=== PATIENT | female | born 1945 | race Caucasian/White ===

== ENCOUNTER 2023-03-25 02:23 | Outpatient (CLI) | payer MEDICARE, BC, SELFPAY ==
[2023-03-25] MEDS: Gadoterate meglumine 20 ML VIAL 12 ML IVP (10:21)
--- NOTE | 2023-03-25 11:00 | DI.MRI_ITS ---
Exam(s) MR IAC BRAIN WO/W EXAM: MR IAC BRAIN WO/W CLINICAL HISTORY: asymmetric hearing, imbalance, Family h/o acoustic neuroma Acoustic Neuro. TECHNIQUE: Multiplanar multisequence MRI of the brain and internal auditory canals was performed. CONTRAST MATERIAL: IV Contrast: 12 mL of Dotarem contrast administered. COMPARISON: No exams were available for comparison FINDINGS: VENTRICLES AND EXTRA AXIAL SPACES: Normal in size and morphology for the patient's age. Incidental no te is made of a cavum septum pellucidum. HEMORRHAGE: None. CEREBRAL PARENCHYMA: No focus of restricted diffusion to suggest acute infarct. No space-occupying le tomás identified. There are multiple areas of hyperintense signal in the white matter on the FLAIR and T2 weighted images most consistent with small vessel ischemic disease. MIDLINE SHIFT: None. BRAINSTEM/CEREBELLUM: Normal. CALVARIUM: Normal. ENHANCEMENT: No suspicious enhancement identified. VISUALIZED PARANASAL SINUSES/MASTOIDS: There are small mucous retention cysts or polyps in the right maxillary sinus. [place]: Normal flow void. PITUITARY GLAND: Unremarkable. IAC/CP ANGLE: The internal auditory canals are within normal limits. The cerebellar pontine angles ar e unremarkable. No enhancing lesions are seen. Visualized portion of the facial nerves appear within normal limits. OTHER FINDINGS: None. IMPRESSION: 1. No intracranial mass or enhancing lesion. Specifically no mass or enhancing lesion is seen in the IAC or cerebellopontine angle. 2. Findings of age-related cerebral atrophy and small vessel ischemic disease. 3. No evidence of an acute infarct. DATA REPOSITORY:
== END 2023-03-25 02:43 ==
PROVIDERS: PCP Nurse Practitioner; Visit Provider Otolaryngology
DX: H90.3 Sensorineural hearing loss, bilateral (principal); R26.89 Other abnormalities of gait and mobility; I67.82 Cerebral ischemia
CPT/HCPCS: 70553

== ENCOUNTER → 2023-09-03 08:18 | Outpatient (BNVA) | payer MEDICARE, BC, SELFPAY | PROVIDERS: Referring Provider Nurse Practitioner; Visit Provider Student in an Organized Health Care Education/Training Program | DX: M17.11 Unilateral primary osteoarthritis, right knee (principal) | CPT/HCPCS: 99203 ==

== ENCOUNTER → 2024-04-10 13:43 | Outpatient (BNVA) | payer MEDICARE, BC, SELFPAY | PROVIDERS: PCP Family Medicine; Referring Provider Family Medicine; Visit Provider Student in an Organized Health Care Education/Training Program | DX: M17.11 Unilateral primary osteoarthritis, right knee (principal) | CPT/HCPCS: 99213 ==

== ENCOUNTER → 2024-04-17 14:24 | Outpatient (BNVA) | payer MEDICARE, BC, SELFPAY | PROVIDERS: PCP Family Medicine; Referring Provider Family Medicine; Visit Provider Student in an Organized Health Care Education/Training Program | DX: M17.11 Unilateral primary osteoarthritis, right knee (principal) | CPT/HCPCS: 20610; J1010 ==

== ENCOUNTER → 2025-01-19 07:58 | Outpatient (BNVA) | payer MEDICARE, BC, SELFPAY | PROVIDERS: PCP Family Medicine; Referring Provider Family Medicine; Visit Provider Physician Assistant | DX: M17.11 Unilateral primary osteoarthritis, right knee (principal) | CPT/HCPCS: 20610; J1010 ==

== ENCOUNTER → 2025-07-16 09:45 | Outpatient (BNVA) | payer MEDICARE, BC, SELFPAY | PROVIDERS: PCP Family Medicine; Referring Provider Family Medicine; Visit Provider Student in an Organized Health Care Education/Training Program | DX: M17.11 Unilateral primary osteoarthritis, right knee (principal) | CPT/HCPCS: 99214 ==

== ENCOUNTER 2025-09-17 14:37 | Outpatient (CLI) | payer MEDICARE, BC, SELFPAY ==
--- NOTE | 2025-09-17 13:45 | DI.RAD_ITS ---
Exam(s) XR STANDING ALIGNMENT XR KNEE RT 1V EXAM: XR STANDING ALIGNMENT and XR knee RT 1 V CLINICAL HISTORY: OA R KNEE. TECHNIQUE: 2D digital imaging was performed. Five images were obtained. COMPARISON: CR Knee Right 3 Views from 01/15/2022 FINDINGS: BONES: The hips are well maintained. In the left knee, there are mild degenerative changes characterized by osteophytes and mild narrowing of the medial femoral tibial joint space. In the right knee, tricompartment degenerative changes are present characterized by joint space narrowing and osteophytes. The findings are most marked at the patellofemoral joint where there is near complete loss of the joint space. There is moderately severe narrowing of the medial femoral tibial joint. There is chondrocalcinosis seen in the lateral femoral tibial joint. There is an osteochondral defect seen in the medial femoral condyle. There is a lucency seen in the medial talar domes bilaterally.There is no significant leg length discrepancy. SOFT TISSUE: Normal. IMPRESSION: 1. Osteoarthritis of the knees, right greater than left. 2. Osteochondral lesion of the right medial femoral condyle. 3. Osteochondral lesion of the talar domes bilaterally. DATA REPOSITORY: RADIATION DOSE DELIVERED:
== END 2025-09-17 14:38 | disposition home or self-care (01) ==
LOC: DIORS 14:38
PROVIDERS: PCP Family Medicine; Referring Provider Family Medicine; Visit Provider Physician Assistant
DX: Z01.818 Encounter for other preprocedural examination (principal); M17.11 Unilateral primary osteoarthritis, right knee
CPT/HCPCS: 99024; 73560; 77073

== ENCOUNTER 2025-09-19 05:59 | Day surgery (SDC) | payer MEDICARE, BC, SELFPAY ==
--- NOTE | 2025-09-18 17:15 | ANES.PREOP_ITS ---
General Info Date of Service Date Performed: 09/19/25 Height: 5 ft 6 in Weight: 60.781 kg Body Mass Index (BMI): 21.6 Surgical Procedure: Operation Date: 09/19/25 07:40 Proposed Procedure Side Surgeon p Knee Total Arthroplasty Right Damon Woodward MD Meds Allergies and Home Medications Allergies Allergy/AdvReac Type Severity Reaction Status Date / Time No Known Allergies Allergy Verified 09/19/25 06:12 Home Medication ?Medication ?Instructions ?Recorded alendronate 70 mg tablet 70 mg PO QWEEK 09/03/23 rizatriptan 10 mg tablet (Maxalt) See Rx Instructions PO .COMPLEX 09/03/23 dorzolamide 2 % eye drops 1 drp ophthalmic (eye) TID 0 07/16/25 netarsudil 0.02 % eye drops 1 drp ophthalmic (eye) QPM 07/16/25 (Rhopressa) lisinopril 10 mg tablet 10 mg PO DAILY 09/05/25 brimonidine 0.2 %-timolol 0.5 % 1 drp ophthalmic (eye) BID 09/17/25 eye drops (Combigan) Current Visit Medications: Current Medications Generic Name Dose Route Start Last Admin Trade Name Freq PRN Reason Stop Dose Admin Acetaminophen 1,000 mg 09/19/25 06:00 Acetaminophen 500 Mg Tab PO 09/19/25 23:59 PREOP ED Celecoxib 400 mg 09/19/25 06:00 Celecoxib 200 Mg Cap PO 09/19/25 23:59 PREOP ED Gabapentin 300 mg 09/19/25 06:00 Gabapentin 300 Mg Cap PO 09/19/25 23:59 PREOP ED Ringer's Solution 1,000 mls @ 80 mls/hr 09/19/25 06:00 IV 09/19/25 23:59 INFUSION ED Cefazolin Sodium/Dextrose 2 gm in 50 mls @ 100 mls/hr 09/19/25 06:00 Ancef Duplex IVPB 09/19/25 23:59 PREOP DE Tranexamic Acid/Sodium Chloride 1,000 mg in 100 mls @ 600 mls/hr 09/19/25 06:00 IVPB 09/19/25 23:59 PREOP ED Sodium Chloride 0 ml 09/19/25 06:00 Normal Saline Flush 10 Ml Syr IV 09/19/25 23:59 PRN PRN Sodium Chloride 0 ml 09/19/25 06:00 Normal Saline 10 Ml Vial IJ 09/19/25 23:59 DIRECTED PRN Sterile Water 0 ml 09/19/25 06:00 Water,Injection,Sterile 10 Ml Vial IJ 09/19/25 23:59 DIRECTED PRN PFSH Active Problems Active Problems: Problem Status Onset Code Impairment of speech discrimination Acute H93.299 Arthritis of right knee Acute M17.11 Conductive hearing loss, external ear Acute H90.2 Impacted cerumen, bilateral Acute H61.23 Degenerative joint disease of right knee Chronic M17.11 Imbalance Acute R26.89 Asymmetrical sensorineural hearing loss Acute H90.3 Sensorineural hearing loss Acute H90.5 Wears hearing aid in both ears Acute Z97.4 Sensorineural hearing loss (SNHL) of both ears Acute H90.3 Otalgia, right ear Acute H92.01 Hypercholesterolemia Acute E78.00 Hypertension Chronic I10 Chronic diarrhea Acute K52.9 Patellofemoral arthritis of right knee Acute M17.11 Plantar fasciitis Acute M72.2 Medical History Medical History Lumbago with sciatica Basal cell carcinoma (BCC) of back Cataract Surgical History Surgical History H/O: hysterectomy History of renal stent H/O hernia repair S/P bunionectomy Tobacco Smoking/Tobacco Use Status: Never Passive smoking exposure: No Alcohol Alcohol Intake: current Alcohol intake frequency: a few times a month Substance Use Substance use: Never Substance use type: does not use Vital Signs and Lab Results Vital Signs Most Recent Vital Signs in EMR: Temp Pulse Resp BP Pulse Ox 36.1 C L 74 18 158/97 H 98 09/19/25 06:09 09/19/25 06:09 09/19/25 06:09 09/19/25 06:09 09/19/25 06:09 Anesthesia Assessment and Plan Anesthesia History Personal History: No History of Anesthesia Complications Family History: No Family History of Anesthesia Complications Exercise Tolerance Exercise Tolerance: Metabolic Equivalents>4 Cardiac & Pulmonary Exam Cardiac Exam: Normal S1/S2 Heart Sounds Pulmonary Exam: Clear Bilateral Breath Sounds Implantable Cardiac Device Does patient have a Pacemaker or an ICD?: No Airway Exam Known Difficult Airway: No Mallampati Class: 4 Mouth Opening: Normal (> 3cm) Thyromental Distance: Greater than 3 cm Neck Range of Motion: Limited ROM Neck Circumference: Normal Teeth Condition: Normal Dentition ASA Classification ASA Score: ASA 2 Emergency Case?: No NPO Status NPO Status: NPO Clears >2 hours, Solids >8 hours Anesthesia Plan Resuscitation Status: Full Code Anesthesia Technique: Spinal Anesthesia Airway Planned: Natural Airway Pain Management: Surgeon and patient request nerve block Monitors Used: Standard Monitors Preoperative Comments:: 80 yo with NKA for TKA. Sig PMHx: HTN (lisinopril. 158/85 at PCP), LBP/sciatica (had a kyphoplasty L1. Spine imaging on her phone reviewed), migraine (rizatriptan). Never smoker, occ EtOH. ECG/LABS (at PCP): WNL.
[2025-09-19] VITALS (20 sets, daily range): BP systolic 131–173; BP diastolic 60–120; PULSE 55–74; RESP 13–29; TEMP 36.1–36.6; O2SAT 92–98; BMI 21.6
[2025-09-19] MEDS: Celecoxib 200 MG CAP 400 MG PO (06:14)
[2025-09-19] MEDS: Acetaminophen 500 MG TAB 1000 MG PO (06:14)
[2025-09-19] MEDS: Gabapentin 300 MG CAP PO (06:15)
[2025-09-19] MEDS: Lactated Ringers 1,000 ML 80 ML IV (07:00)
--- NOTE | 2025-09-19 07:15 | W.PM.DSUDISC ---
Date of service: 09/19/25 Discharge Plan Disposition Patient Disposition: Home Condition: Good Discharge Details Reason For Visit: R TKR Attending Provider: Damon Woodward Primary Care Provider: Vicente Valle [place] Meds and New Rx's Prescriptions: New celecoxib 200 mg capsule 200 mg PO BID Qty: 60 0RF aspirin 81 mg tablet,delayed release (DR/EC) 81 mg PO BID Qty: 60 0RF acetaminophen 500 mg tablet 1,000 mg PO TID Qty: 90 3RF pantoprazole 40 mg tablet,delayed release (DR/EC) 40 mg PO DAILY Qty: 14 0RF dexamethasone 4 mg tablet 4 mg PO DAILY Qty: 2 0RF docusate sodium 100 mg capsule 100 mg PO BID PRNQty: 28 0RF gabapentin 300 mg capsule 300 mg PO QHS Qty: 14 0RF oxycodone 5 mg tablet 5 mg PO Q4H PRNQty: 18 0RF Continued alendronate 70 mg tablet 70 mg PO QWEEK rizatriptan [Maxalt] 10 mg tablet See Rx Instructions PO .COMPLEX Rx Instructions: take 1 tab at onset of headache; if no relief may repeat 1 tab after at least 2 hrs; max = 3 tabs/24 hr PO dorzolamide 2 % drops 1 drp ophthalmic (eye) TID Rhopressa 0.02 % drops 1 drp ophthalmic (eye) QPM lisinopril 10 mg tablet 10 mg PO DAILY brimonidine-timolol [Combigan] 0.2-0.5 % drops 1 drp ophthalmic (eye) BID Patient Comments: INSTILL 1 DROP INTO BOTH EYES TWICE DAILY Discharge Instructions Additional Instructions: Total Knee Discharge Instructions Activity: The most important activity is to walk and to work on gentle motion (both flexion and extension). You should try to take short walks a few times a day. It is important that when resting you work on keeping the knee straight. Avoid putting a pillow behind the knee as this will encourage flexion. Work on range of motion exercises as provided by Physical Therapy. - Start outpatient physical therapy within 2 weeks. - You should wear the LEROY hose on both legs for 2 weeks. You may remove these at night. You may also use any compression sock in place of the LEROY hose. - Utilize [employer] to review exercises, see videos on exercises and obtain basic information pertaining to your surgery and your recovery. Dressing: Remove the Darryl wrap by 2 days after your surgery and put on the LEROY stocking given to you from the hospital. Keep the surgical dressing (underneath the DARRYL wrap) in place for at least one week. After the first week it may be removed and replaced with light gauze and tape or nothing. The wound and dressing may get wet after 3 days but avoid soaking the dressing or otherwise it will need to be changed. Many people prefer covering the dressing with cling wrap (saran wrap) to minimize it from getting soaked. If it gets wet, just pat dry. If it starts to peel off then it will need to be changed. Medications: - You should take Tylenol and anti-inflammatory Celebrex as your primary pain control medications. If the Celebrex is too expensive or not covered, please call the office for another alternative (Advil/Ibuprofen or Naproxen/Aleve) - You have been prescribed a stronger pain medication Oxycodone for breakthrough pain, take as needed as prescribed. - You have also been prescribed a stomach acid reduction agent Pantoprozole to help reduce stomach acid and reflux. - You have been prescribed Gabapentin to take at night for restlessness and nerve pain. - You will be taking Aspirin 81mg twice a day for DVT prevention unless instructed otherwise. - You have also been prescribed Decadron to take to control post-operative nausea and pain. You will start this tomorrow. - If you have constipation you should take Colace or Miralax (both [id number]). It takes most people 3-4 days to have a bowel movement. Follow-up: 2 weeks If you have any acute concerns or questions, please do not hesitate to contact the office at [phone]. You may contact Dr. Woodward with any questions after hours through the hospital at [phone] or on his cell phone at [phone]. Stand Alone Forms: Anesthesia Discharge Inst., Ana.Nerve Block Instructions, Tonny Malik (DSU), Portal Information Referrals: Damon Woodward MD [ [facility] STAFF PHYSICIAN, Orthopaedic Surgical] - 10/05/25 10:30 am Equipment/Supplies: Walker Activity:: Activity as Tolerated Shower/Bathe:: 72 hours Diet:: As Tolerated Discharge Orders Discharge Orders: Discharge Order (Routine); Ordered 09/19/25 Ordered By: Librado Romo DS: Diagnosis Discharge Diagnosis (1) Degenerative joint disease of right knee: Status: Chronic
--- NOTE | 2025-09-19 07:30 | W.ANESNERVE ---
Nerve Block Single Injection Procedure Date and Time Date Performed: 09/19/25 Procedure Start: 07:18 Location Where Procedure Performed Procedure Location: Day Surgery Unit Reason Performed: Postoperative Analgesia Requesting Provider: Damon Woodward Timeout Performed Timeout Performed: Yes Monitoring Used ECG, Blood Pressure and SpO2 Sterility Sterility: Hand Hygiene, Surgical Cap, Surgical Mask, Sterile Gloves and Chlorhexidine Sedation Given During Procedure Sedation Given (Indicate Dose Given): Propofol IV Dose:: 15 mg Patient Mental Status Patient Mental Status: Sedate with meaningful communication Nerve Block 1st Nerve Block: Laterality: Right Block Type: Adductor Canal Ultrasound Image Saved?: Yes Needle / Catheter Used: 100mm SonoPlex II Local Anesthetic Bolus (Indicate Dose Given): Lidocaine used for local infiltration of skin and Bupivacaine 0.25% Dose:: 8 mL Additives (Indicate Dose Given): None Ultrasound: Not Used Nerve Stimulator: Primary Nerve Stimulator Technique and No twitch or parasthesia noted < 0.5 mA Paresthesia: None Procedure Tolerated: No Complications Procedure Outcome: Successful Performed By: Kings Ortiz
--- NOTE | 2025-09-19 07:37 | ROE_ITS ---
Operative Note Operative Note PRE-OP DIAGNOSIS: Right Knee Osteoarthritis POST-OP DIAGNOSIS: same PROCEDURE: Right Total Knee Replacement SURGEON: Damon Woodward WHIRLEY OPERATOR: Chepe Romo ANESTHESIA TYPE: General LMA/ETT Refer to Anesthesia Record ESTIMATED BLOOD LOSS: 150 PATHOLOGY: none sent TOURNIQUET TIME: 0 COMPLICATIONS: None Patient was transported to: PACU Patient's condition: stable Implants: 1. Depuy Attune Cementless Cruciate Retaining Femoral Component, Size 6 2. Depuy Attune Cementless Fixed Bearing Tibial Component, Size 5 3. Depuy Attune 6x6mm CR/FB Poly 4. Depuy Attune Patellar Component, Size 35mm Indications: I have seen Suzanne in clinic for symptoms of knee arthritis with notable deformity, confirmed with radiographic findings. She has exhausted nonoperative methods and was having significant limitations in daily function and desired better function and less pain. I discussed the technical details of a knee replacement. I explained the risks of the procedure to include, but not limited to, bleeding, infection, pain, stiffness, fracture, damage to nerves and vessels, damage to muscles and tendons, loosening, need for repeat procedure, blood clot and cardiopulmonary demise. Despite these risks, Suzanne elected to proceed. Findings: There was significant signs of arthritis throughout the knee with deformity of the patella, trochlea and medial femur. Procedure Description: Suzanne was greeted in the preoperative holding area where the correct side was identified and marked. The consent was reviewed with the patient and signed. The history and physical was updated. All questions were answered. Preoperative medications were administered: Acetaminophen 1000mg, Celebrex 400mg, and Gabapentin 300mg. An adductor canal block was then administered by the anesthesia team in the DSU. Suzanne was taken back to the operating room. A spinal anesthestic was then administered although she continued to have leg motion and therefore was converted to general anesthetic.. The patient was placed into the supine position on the operating room table. Posts were placed for positioning during the procedure. All bony prominences were well padded. Prophylactic antibiotics in the form of Cefazolin were administered. 1g of Tranxemic Acid was given intravenously within 30 minutes of incision. The right leg was then prepped with Chloraprep and draped in a standard fashion with impervious stockinette. A second prep with Chloraprep was performed prior to application of Iodine impregnated skin protection. A timeout to confirm correct identity, side and site, procedure, allergies, anesthesia, and medical concerns was performed. With the knee in some flexion, a midline incision was made overlying the knee. Full thickness skin flaps were raised once the extensor mechanism was encoun tered. These were raised medially and laterally. Any bleeding was controlled with electrocautery. Once the extensor mechanism was fully exposed, a medial parapatellar arthrotomy was performed in a flexed position. All bleeding from the arthrotomy and the geniculate arteries was coagulated. A medial subperiosteal peel was performed with electrocautery to the midcoronal plane. The fat pad was removed while keeping the patellar tendon protected. The anterior distal femur synovium was removed for later visualization. The ACL and PCL were resected and the anterior horn of the lateral meniscus was transected. The knee was then flexed with the patella everted. Large osteophytes from the tibia were removed. Large osteophytes from the femur were removed. Using a step drill, and based on preoperative templating, the femoral canal was entered. This was done with a step drill without any difficulty. The intramedullary distal femoral cut guide was inserted, set to a 6 degree valgus cut and 9mm cut thickness. The distal femoral cut guide was then held in position and pinned. With the soft tissues protected, the distal cut was performed. This was passed over a few times to ensure a planar cut. I then turned attention to the tibia. The extramedullary guide was placed onto the leg. The distal aspect was slid medial to adjust for position of center of ankle and stay in line with shaft of the tibia. Approximately 5 degrees of posterior slope was kept in the proximal cutting guide. The center of the guide was aligned with the PCL. The stylus was used to assess cut thickness. A balance cut of about 7 to 8 mm for both medial and lateral sides was then made. This was then held in position and pinned into place with 2 additional pins and a cross pin for stability. The medial and lateral collateral ligaments were protected and the cut was performed. With this completed, it was assessed and noted to be of appropriate dimensions. The guide was removed. A spacer block was inserted and the knee was brought into extension. The 6mm spacer block provided full extension, without hyperextension and with stability of both the medial and lateral collateral ligaments was assessed. The pins from the femur and the tibia were then removed. The distal femur was then sized. The anterior stylus was placed onto the lateral ridge of the anterior femur. This indicated a size 5 femur. The external rotation of the guide was adjusted to 0 degrees to match the epicondylar axis, perpendicular to Lopez?s line. The 4-in-1 cutting guide was the placed. The posterior medial femur cut was evaluated and appeared of good thickness. The spacer block was inserted underneath the cutting guide and stability was confirmed in 90 degrees of flexion. An beth wing was used to confirm appropriate position of the anterior cut to avoid notching. This cutting guide was ensured to be flush on the cut surface and then pinned into place with headed pins. While protecting the soft tissues, quad tendon, and collateral ligaments, the anterior and posterior cuts were performed with a saw. The central two pins were removed and the posterior and anterior chamfers were cut next. The notch-cutting guide was placed. This was pinned to lateralize the femoral component as much as possible while keeping it flush on the cut surface. This was then pinned into position. A reciprocating saw was used to make the notch cut. A rasp smoothed the cut surfaces. The medial and lateral menisci were removed. A trial femoral component was then inserted, impacted down to the cut surfaces, and the lug holes were drilled. A provisional trial tibial component was placed and the knee was brought through range of motion. There was noted to be excellent extension and flexion. There was no significant instability. The patella was tracking without thumbs. A size 6mm polyethylene component provided the best range of motion and stability with less than 2mm gapping with medial and lateral stress and full extension without significant hyperextension. The tibial cut surface was fully exposed. The tibia was then sized as a 5. The tibia had been previously marked during trialing to correspond to the center of the tibial component to help with rotation. The trial was aligned to this chepe, approximately rotated to the medial 1/3rd of the tibial tubercle. The trial was pinned into place. The tibia was prepared with a reamer and a keel punch and lug holes. The knee was then brought into extension and the patella was measured as 20mm. Using the patellar clamp and cut guide, this was resected to a flat surface with at least 13mm of thickness remaining. The size 35mm patella fit the best. This was oriented and then clamped into position. The lugs were drilled. The trial components were removed. The final components were opened on the back table. The periosteal and capsular tissues, especially posteriorly, around the knee were then systematically injected with a periarticular cocktail consisting of 246mg of Ropivacaine, 0.5mg of Epinephrine, 0.08mg of Clonidine, and 30mg of Ketorolac, diluted to 100cc. On the back table, with the implants opened. The cement was mixed. One batch of high viscosity cement was prepared with vacuum assistance. After the cement was ready a small amount was placed on the cut surface of the patella and the p atellar button was clamped into position and held. The cementless knee components were placed. Starting with the tibial component, the tibia was subluxed anteriorly and the lug holes of the component were lined up. The tibia was then impacted with an impactor and mallet until the tibial component was in contact with the tibia. Then, the femoral component was inserted. The lug holes were aligned and the component was impacted into position. The final polyethylene component was inserted. The knee was irrigated with Surgiphor Betadine solution. This was allowed to sit in the knee for 3 minutes and then it was irrigated out with saline. After the cement had finally cured, approximately 15min, the clamp was removed from the patella and the knee was taken through range of motion. The patella was tracking with a no-thumbs technique. A complete synovectomy was performed around the periphery of the patella. A lateral facetectomy was also performed. The capsule was then reapproximated with a No. 1 Vicryl at multiple locations. The capsule was finally closed with a No. 2 Stratafix, barbed suture. Deep tissues were then reapproximated with 0 Vicryl and 2-0 Vicryl. The skin was closed with a running 3-0 Monocryl in a subcuticular fashion. This was reinforced with skin glue. A Mepilex silver dressing was applied along with a [id number] ADDY wrap. A CryoCuff was applied. Lowri was transferred to the hospital bed without difficulty an suffering no apparent complication. Lowri has a good prognosis. Physical therapy will start today and without restrictions, weight-bearing as tolerated. Aspirin 81mg BID will be used for DVT prophylaxis. Date of Procedure: 09/19/25
[2025-09-19] MEDS: ceFAZolin 2 GM/50 ML BAG IVPB (07:51)
[2025-09-19] MEDS: TRANEXAMIC ACID/SOD. CHL. 1,000 MG/100 ML BAG 600 MG IVPB (07:55)
[2025-09-19] MEDS: ROPIvacaine/EPI/CLONIDINE/KET 50 ML SYRINGE IJ (08:07)
--- NOTE | 2025-09-19 09:37 | W.ANESPOSTOP ---
Postoperative Evaluation Date, Time and Location Date Performed: 09/19/25 Time Performed: 09:38 Patient Location: PACU Vital Signs Most Recent Imported Vital Signs: Most Recent Vital Signs Temp Pulse Resp BP Pulse Ox 36.4 C L 63 24 151/83 H 95 09/19/25 09:25 09/19/25 09:25 09/19/25 09:25 09/19/25 09:25 09/19/25 09:25 Pain Score Most Recent Pain Score: Most Recent Pain Score Pain Level 6 09/19/25 09:29 Assessment Mental Status: Arousable with meaningful communication Airway and Respiratory Function: Patent airway with normal (patient baseline) respiratory exam Cardiovascular Function: Hemodynamically Stable Hydration Status: Adequately Hydrated Nausea & Vomiting: No Nausea or Vomiting Pain: Pain is tolerable per patient Peripheral Nerve Block: Regional nerve block not resolved at time of post operative discharge
[2025-09-19] MEDS: fentaNYL 100 MCG/2 ML VIAL IVP ×2 (09:38→09:46)
[2025-09-19] MEDS: Tranexamic Acid 650 MG TAB 1300 MG PO (10:19)
[2025-09-19] MEDS: oxyCODONE 5 MG TAB PO (10:19)
--- NOTE | 2025-09-19 11:34 | PT.INIE ---
PT Notes Visit Reasons: R TKR ? Physical Therapy Day Surgery Initial Evaluation Date:09/19/2025 Referring Doctor: Librado CASTRO PT Orders: PT CONSULT: : Day surgery Eval Precautions: : Standard, fall, WBAT, Hard of hearing Patient Profile/Admitting Diagnosis: 80-year-old female who had right TKA with general anesthesia with an adductor nerve block PMHX: Impairment of speech discrimination (Acute) Arthritis of right knee (Acute) Conductive hearing loss, external ear (Acute) Impacted cerumen, bilateral (Acute) Degenerative joint disease of right knee (Chronic) DEPO MEDROL: 01/19/2025; 04/17/2024Imbalance (Acute) Asymmetrical sensorineural hearing loss (Acute) Sensorineural hearing loss (Acute) Wears hearing aid in both ears (Acute) Sensorineural hearing loss (SNHL) of both ears (Acute) Otalgia, right ear (Acute) Hypercholesterolemia (Acute) Hypertension (Chronic) Chronic diarrhea (Acute) Patellofemoral arthritis of right knee (Acute) Plantar fasciitis (Acute) Medical History Lumbago with sciatica Basal cell carcinoma (BCC) of back Cataract Surgical History H/O: hysterectomy History of renal stent H/O hernia repair S/P bunionectomy Social History/Home Situation: Pt lives in a single-family home with . Pt has two SABIHA with no railing. Equipment Owned/DME: FWW (pt FWW was reported to be not sturdy) Subjective: Pt reported feeling well. When asked about equipment at home pt reported having a walker, but it wasn?t like the one the hospital was letting her use, that her walker wasn?t as sturdy as this one. Objective: General Observation: Pt laying in stretcher with cryocuff on drinking some water/tea. RN had just given medication for pain about 30 minutes prior to start of session Mental Status: alert and oriented x4 Pain: no pain in bed, just a slight ache in R knee while ambulating ROM: Right Upper Extremity:? WFL Left Upper Extremity: WFL Right Lower Extremity: WFL excepts -8 degrees knee extension, and 120 degrees knee flexion Left Lower Extremity: WFL Strength: Right Upper Extremity: Grossly 4/5 Left Upper Extremity: Grossly 4/5 Right Lower Extremity: Grossly 4/5 excepts knee flexion 4-/5 knee extension 4-/5 hip flexion 4-/5. Pt had a good contraction of the quad with no lag. Pt did need moderate verbal and tactile cueing to help facilitate a contraction of the quad. Left Lower Extremity: Grossly 4/5 Sensation: intact Bed Mobility/Transfers: Supine to sit supervision Sit to stand supervision Stand to sit supervision Bed to chair supervision with FWW Gait: Pt ambulated 75 feet with FWW. Pt needed mild verbal cueing to keep the walker further In front of her and not to step to much, as this can cause her to be unbalanced. Pt had a step to pattern with increase in time for completion. Decreased in step height, and celeste. Stairs: Pt ambulated 2 6inch steps and 3 4inch steps with FWW in front on top platform for ascending and ground for descending to simulate being at home. PT provided verbal cueing for foot placement and sequence. Pt had a step to pattern with increase in time for completion. Balance: Static Sitting: normal Dynamic Sitting: normal Static Standing: good Dynamic Standing: good w/one UE support Special Tests: Mobility Limitations Standardized Measure [facility] 6 clicks Basic Mobility Inpatient Short Form: Raw Score: 23? CMS Score: 11.2% Informed Consent/Education:? Patient instructed in purpose of PT consult.? Packet containing TKA exercise protocol has been given to patient.? Education and training on initial set of exercises that can be done at home have been completed with patient. Therapeutic activity 83242: Ambulation: Pt ambulated 50 feet w/FWW supervision. Pt had a reciprocal walking pattern and needed min cueing for walker placement. Glute contraction: [id number] Quad contraction: [id number] Angle pumps: [id number] Heel slides: [id number] Straight leg raise: [id number] Assessment: Pt was able to ambulate a total of 125 feet w/FWW and supervision. PT monitored pt pain levels and they didn?t increase. As, pt ambulated and became more comfortable. PT had the patient perform a reciprocal walking pattern. Pt was able to perform a reciprocal walking pattern with no signs of loss of balance, weakness, lightheadedness, or dizziness. PT had the pt perform stairs with the walker instead of the rails to simulate home environment. Pt needed mild cueing for foot sequence. Pt was able to demonstrate understanding of proper foot sequence, by correcting herself. Pt will be sent home until follow up appointment with HEP and then start outpt PT to address remaining deficits. Patient presents with clinical signs and symptoms consistent with current/admitting diagnoses that have resulted to mobility limitations, gait instability, generalized weakness, and impairment of motor control as demonstrated by the following impairment level findings: 1.? Decreased strength to Right knee major muscle groups 2.? Impaired standing balance 3.? Limitation of joint range of motion in right knee 4. pain Right knee once the medication wears off 5. decreased activity tolerance Impairments are contributing to the following functional limitations: 1.? Inability to safely ambulate without assistive device 2.? Increase completion time for mobility ADL performance 3.? Increased fall risk Patient is assessed as a Low complexity based on the following: History: 80-year-old female with impairment level findings, functional limitations, and past medical history as indicated above Examination: Demonstrable impairment in strength, balance, and mobility level with underlying impairments and functional limitations as documented above Presentation: stable but evolving Decision Making: Low Goals: N/A.? PT evaluation and 1-2 treatment sessions only for functional mobility training using recommended AD and for HEP instruction. Plan of Care/Treatment Plan: N/A.? PT evaluation and 1-2 treatment session only for functional mobility training using recommended AD and for HEP instruction. DISCHARGE RECOMMENDATIONS: Home with HEP until follow up appointment then outpt PT TREATMENT CODE/TIME: [id number]/10:57-11:29am Thank you for the opportunity to participate in the care of this patient. Written by: Lavell Abarca DPTS Supervised by: Sintia Pierre PT ? [facility]
== END 2025-09-19 12:15 | disposition home or self-care (01) ==
PROVIDERS: PCP Family Medicine; Visit Provider Student in an Organized Health Care Education/Training Program
PROC: (CPT 27447; principal; 2025-09-19 07:30)
DX: M17.11 Unilateral primary osteoarthritis, right knee (principal); I10 Essential (primary) hypertension
CPT/HCPCS: 27447; 64447; 97161; 97530; C1776; J0665; J0690; J1100; J2371; J2401; J2405; J2704; J3010

== ENCOUNTER 2025-10-05 10:00 | Outpatient (CLI) | payer MEDICARE, BC, SELFPAY ==
--- NOTE | 2025-10-05 09:00 | DI.RAD_ITS ---
Exam(s) XR STANDING ALIGNMENT XR KNEE RT 1V EXAM: XR STANDING ALIGNMENT and XR knee RT 1 V CLINICAL HISTORY: 1ST POST OP S/P R TKA. TECHNIQUE: 2D digital imaging was performed. Five images were obtained. COMPARISON: CR XR STANDING ALIGNMENT from 09/17/2025 CR XR KNEE RT 1V from 09/17/2025 CR XR KNEE RT 1V from 10/05/2025 FINDINGS: BONES: There is a right convex lumbar scoliosis. The hips are well maintained. There has been interval placement of a right total knee arthroplasty. The orthopedic hardware is in good position. There is a joint effusion. Atherosclerotic calcification is present. In the left knee, there is mild na rrowing of the medial femoral tibial joint. Osteophytes are seen both medially and laterally. There is chondrocalcinosis in the lateral femoral tibial joint. The ankles are well maintained.There is no significant leg length discrepancy. SOFT TISSUE: Atherosclerotic calcification is present. IMPRESSION: Right total knee arthroplasty which appears in good position. DATA REPOSITORY: RADIATION DOSE DELIVERED:
== END 2025-10-05 10:01 | disposition home or self-care (01) ==
LOC: DIORS 10-08 09:34
PROVIDERS: PCP Family Medicine; Visit Provider Physician Assistant
DX: Z47.1 Aftercare following joint replacement surgery (principal); Z96.651 Presence of right artificial knee joint
CPT/HCPCS: 99024; 73560; 77073